=== PATIENT | male | born 1980 | race African-American/Black ===

== ENCOUNTER 2025-02-26 15:39 | Emergency (ER) | payer BC ==
[~2025-02-26] VITALS: Ht 188 cm; Wt 104.3 kg
[2025-02-26 15:43] VITALS: BP 131/97; PULSE 77; RESP 18; TEMP 97.8; O2SAT 97
[2025-02-26] MEDS ORDERED: TRIPLE ANTIBIOTIC OINTMENT PKT TP ONE (16:02)
[2025-02-26] MEDS: MOTRIN PO STA (16:54)
== END 2025-02-26 17:01 | disposition home or self-care (01) ==
LOC: ER 15:39
DX: L02.416 Cutaneous abscess of left lower limb (principal)
CPT/HCPCS: 99283